=== PATIENT | male | born 1960 | race Caucasian/White ===

== ENCOUNTER → 2021-04-05 08:43 | Outpatient (CLI) | payer OTHER, SELFPAY ==
[2021-04-05 12:19] LABS: COVID19 -Nasal RAPID Negative (Negative)
== END ==
PROVIDERS: PCP Internal Medicine; Visit Provider Physician Assistant
DX: Z01.812 Encounter for preprocedural laboratory examination (principal); Z20.822 Contact with and (suspected) exposure to COVID-19
CPT/HCPCS: 87635

== ENCOUNTER 2021-04-06 07:46 | Day surgery (SDC) | payer OTHER, SELFPAY ==
--- NOTE | 2021-04-06 | PATH_ITS ---
[facility] Accession Number: [id number] . 01 Material submitted: . colon - COLON POLYPS . 01 Clinical history: . SDC . 02 Diagnosis: Colon, Polyps, Biopsies: Tubular adenomas. MRV 04/09/2021 1009 Local . 02 Electronically signed: . Radha Ayala MD, Pathologist NPI- [id number] . 01 Gross description: . COLON POLYPS: Received in formalin are 2 fragment(s) of campos, soft tissue measuring 0.4 x 0.4 x 0.3 cm to 0.2 x 0.2 x 0.2 cm submitted entirely in 1 cassette(s) /BONG 04/07/2021 0723 Local . 02 Pathologist provided ICD-10: D12.6 . 02 CPT . 146473 Performed at: 01 [facility] [address] [id number] MD Jad Manzo MD Phone: [phone] Performed at: 02 [facility] [address] [place], [place] [id number] MD Radha Ayala MD Phone: [phone]
[2021-04-06] MEDS: SODIUM CHLORIDE 0.9% 1,000 ML 125 ML IV (07:59)
[2021-04-06 08:06] VITALS: BP 126/78; PULSE 65; RESP 14; TEMP 36.2; O2SAT 99
[2021-04-06 08:12] VITALS: BMI 27.4
--- NOTE | 2021-04-06 09:05 | PM.HP.1 ---
History of Present Illness History of Present Illness Date Patient Seen: 04/06/21 Time Patient Seen: 09:05 Chief complaint: SDC Narrative: Indicated for CRC screening. No symptoms. Patient History Medical History Environmental allergies Surgical History History of colonoscopy Comment: Negative cscope approximately 10 yrs ago. Family & Social History Family history unavailable: Yes Social History: household members spouse Tobacco & Substance use: Smoking Status Never smoker alcohol intake current alcohol intake frequency 3 or more drinks per day Substance Use Type does not use Comment: No fam hx crc Meds Home Medications and Allergies Home Medications Medication Instructions Recorded Confirmed Type fluticasone propionate 50 2 spray INTRANASAL DAILY 04/06/21 04/06/21 History mcg/actuation nasal spray,suspension loratadine 10 mg tablet (Claritin) 10 mg PO DAILY PRN 04/06/21 04/06/21 History Allergies Allergy/AdvReac Type Severity Reaction Status Date / Time No Known Drug Allergies Allergy Verified 04/06/21 08:01 Review of Systems Review of Systems ROS: Yes All systems reviewed with the patient and are negative except as otherwise documented Exam Vital Signs (past 8 hours): - 04/06/21 08:06 Temperature 97.1 F L Pulse Rate 65 Respiratory Rate 14 Blood Pressure 126/78 Pulse Oximetry 99 Oxygen Delivery Method Room Air Const General: cooperative and comfortable Orientation: alert HENCT Head: normocephalic Ears: external ears normal Nose: external nose normal Face and sinus: normal facial exam Mouth: oral mucosae normal Eyes General: appearance normal, both eyes and all related structures Neck Neck: normal visual inspection Chest Chest: normal inspection of the chest Resp Effort & Inspection: normal respiratory effort Auscultation: clear to auscultation bilaterally Cardio Rate: regular rate Rhythm: regular rhythm Heart Sounds: no murmurs GI Inspection: normal to inspection Palpation: soft and No tender Auscultation: normal bowel sounds Skin General: no rashes or lesions noted and No jaundice Neuro General: patient alert and moves all extremities Cognition: normal cognition Speech: speech normal Extrem General: no pedal edema Psych Appearance: grossly normal Assessment & Plan Assessment & Plan narrative: Inidcated for colon cancer screening.
--- NOTE | 2021-04-06 09:07 | PM.PREOP ---
Pre-operative Note COVID-19 COVID-19 status: Negative Result date/Date tested (Pos, Neg/Pending): 04/05/21 Interval Note History & Physical reviewed/Exam performed by Physician: Yes Changes to H&P: No ASA Class (for procedural sedation): II
[2021-04-06] MEDS: fentaNYL 250 MCG/5 ML INJ IV (09:12)
[2021-04-06] MEDS: MIDAZOLAM 5 MG/5 ML VIAL IV (09:20)
--- NOTE | 2021-04-06 09:30 | PM.OP.ENDO ---
Operative Date/Time/Diagnoses Date of procedure: 04/06/21 Time of procedure: 09:30 Pre-op diagnosis: Colon cancer screening Post-op diagnosis: same Procedure & Clinicians Study performed: Colonoscopy with cold forceps polypectomies Same procedure as scheduled: Yes Indications: Colonoscopy be for colon cancer screening Surgeon: Hemant Alcantara Procedure Notes SCOAP/Timeout: Done Procedure in detail: After the risks and benefits were explained, written and verbal informed consent was obtained. The patient was brought into the procedure room and placed into the left lateral decubitus position. Conscious sedation medication was applied as per nursing documentation. Digital rectal examination was accomplished. The scope was introduced into the patient and advanced under direct visualization to the cecum as identified by the appendiceal orifice and ileocecal valve. The scope was slowly withdrawn to carefully examine the mucosa for any defects or lesions. Comprehensive imaging was accomplished throughout the rectum including the dentate line. The colon was decompressed, the scope was then removed from the patient who tolerated the procedure well. Fentanyl 100mcg versed 5mg bowel prep adequate Scope withdrawal time: 7 minutes Sedation minutes: 18 Complications: none Impression: There were a couple of diminutive polyps removed with cold forceps. These ranged in size from 4-5 mm. One of them was in the descending colon and 1 in the proximal transverse. No other significant pathology was appreciated throughout. Mild internal hemorrhoids noted on direct views through the anorectum. Endoscopic diagnosis 1. Colon polyps 2. Mild hemorrhoids Post-procedure Recommendations: Colonscopy in 5 years and Will call with biopsy results Plan for aftercare: 1. Await histopathology 2. Repeat colonoscopy 5 years. Disposition: PACU
[2021-04-06 09:32] VITALS: BP 111/65; PULSE 61; RESP 15; TEMP 36.1; O2SAT 98
[2021-04-06 09:37] VITALS: BP 103/62; PULSE 59; RESP 16; O2SAT 98
[2021-04-06 09:41] VITALS: BP 104/70; PULSE 60; RESP 16; O2SAT 99
[2021-04-06 09:53] VITALS: BP 116/73; PULSE 56; RESP 14; TEMP 36.2; O2SAT 99
--- NOTE | 2021-04-06 10:07 | SUR.PHASEII ---
1005 Verbal discharge order obtained from Dr. Alcantara. He will provide the order when completed with his current procedure. Pt A&O, stable, pleasant, tolerating PO well, denies pain.
== END 2021-05-07 10:07 | disposition home or self-care (01) ==
PROVIDERS: PCP Internal Medicine; Referring Provider Internal Medicine Gastroenterology; Visit Provider Internal Medicine Gastroenterology
PROC: 0DJD8ZZ Inspection of Lower Intestinal Tract, Via Natural or Artificial Opening Endoscopic (ICD-10-PCS; CPT 45378; principal; 2021-04-06 09:00)
DX: Z12.11 Encounter for screening for malignant neoplasm of colon (principal); K64.8 Other hemorrhoids; D12.6 Benign neoplasm of colon, unspecified
CPT/HCPCS: 45380; J2250; J3010

== ENCOUNTER 2022-02-10 02:51 | Emergency (ER) | payer BC, SELFPAY ==
[2022-02-10] VITALS (48 sets, daily range): BP systolic 96–142; BP diastolic 51–76; PULSE 81–99; RESP 17–36; TEMP 37.3; O2SAT 88–98; BMI 26.6
--- NOTE | 2022-02-10 03:05 | DI.RAD.S_ITS ---
PROCEDURE: XR CHEST 1V INDICATIONS: dyspnea TECHNIQUE: One view of the chest was acquired. COMPARISON: . FINDINGS: Surgical changes and devices: None. Lungs and pleura: Patchy opacity in left lung base. Small left pleural fluid collection. No pneumothorax. Mediastinum: Mediastinal contours appear normal. Heart size is normal. Bones and chest wall: No suspicious bony lesions. Overlying soft tissues appear unremarkable. IMPRESSION: Left basilar atelectasis versus pneumonia. Small left-sided pleural fluid collection. Dictated by: Kirsten Michel MD, PhD on 02/10/2022 at 8:11 Approved by: Kirsten Michel MD, PhD on 02/10/2022 at 8:13
[2022-02-10 03:18] LABS: Add Manual Diff / Slide Review NO; Basophils Absolute Auto 0 /uL (0-100); Basophils Percent Auto 0.1 % (0-2); Eosinophils Absolute Auto 0 /uL (0-450); Eosinophils Percent Auto 0.1 % (2-4); Hematocrit 33.1 % (41-53); Hemoglobin 11.2 g/dL (13.5-17.5); Lactate (Lactic Acid) 1.1 mmol/L (0.7-2.1); Lymphocytes Absolute Auto 800 /uL (1100-4500); Lymphocytes Percent Auto 5.7 % (25-40); Mean Corpuscular Hemoglobin 33.1 PG (26-34); Mean Corpuscular Volume 97.4 fL (80-100); Monocytes Absolute Auto 1300 /uL (0-900); Monocytes Percent Auto 9.5 % (3-14); Neutrophils Absolute Auto 11600 /uL (1500-7000); Neutrophils Percent Auto 84.6 % (50-75); Platelet Count 404 X10^3/uL (150-400); Red Cell Distribution Width 12.9 % (11.6-14.8); White Blood Cell Count 13.8 X10^3/uL (4.5-11.0)
[2022-02-10 03:19] LABS: Alanine Aminotransferase 135 IU/L (<50); Albumin 3.6 g/dL (3.5-5.0); Albumin Globulin Ratio 1.1 (1.0-2.8); Alkaline Phosphatase 160 U/L (38-126); Aspartate Aminotransferase 79 IU/L (17-59); BUN Creatinine Ratio 20.6 (6-22); Bilirubin Total 1.4 mg/dL (0.2-1.3); Blood Urea Nitrogen 14 mg/dL (9-20); Calcium 8.4 mg/dL (8.4-10.2); Carbon Dioxide 23 mmol/L (22-32); Chloride 103 mmol/L (98-107); Estimated Glomerular Filt Rate > 60 mL/min (>60); Globulin 3.4 g/dL (1.7-4.1); Glucose 174 mg/dL (80-110); HEMOLYSIS < 15 (0-50); Potassium 4.1 mmol/L (3.4-5.1); Sodium 134 mmol/L (137-145)
--- NOTE | 2022-02-10 03:20 | ED_ITS ---
HPI - General Adult <Rafaela Lance MD - Last Filed: 02/19/22 18:06> General Chief complaint: Chest Pain Stated complaint: thinks heart attack pain left side Time Seen by Provider: 02/10/22 02:51 Source: patient Mode of arrival: Ambulatory History of Present Illness HPI narrative: 61-year-old gentleman with no significant personal medical history presents with 2-3 weeks of increasing exertional dyspnea and orthopnea. He also complains of severe fatigue. Describes significant chest pain in the top of his chest radiating to the left shoulder worse when he is laying on his left side. Over the last couple of nights he has noticed night sweats which is very unusual for him. He describes no significant nausea vomiting or abdominal pain. Notes that yesterday he was able [place] chest pain. He says that it was much slower than his typical pacing he felt like he was not able to get a deep breath. Symptoms became severe tonight when he was awakened with significant dyspnea and needed to stand upright. It is unclear if this was a separate event or a description of paroxysmal nocturnal dyspnea. He does not have lower extremity edema he describes no headaches. He notes incidentally that he has a lump on the right side of his neck that he noticed over the last 2 days. It is non painful. He has had no change to weight. He describes no rashes, neck pain, headaches. Related Data Home Medications Medication Instructions Recorded Confirmed fluticasone propionate 50 2 spray intranasal DAILY 04/06/21 04/06/21 mcg/actuation nasal spray,suspension loratadine 10 mg tablet (Claritin) 10 mg PO DAILY PRN Allergies 04/06/21 04/06/21 Allergies Allergy/AdvReac Type Severity Reaction Status Date / Time No Known Drug Allergies Allergy Verified 04/06/21 08:01 Review of Systems <Rafaela Lance MD - Last Filed: 02/19/22 18:06> Review of Systems Narrative: Remainder of complete review of systems is otherwise unremarkable except for that included in the HPI. Patient History <Rafaela Lance MD - Last Filed: 02/19/22 18:06> Medical History Environmental allergies Surgical History History of colonoscopy Social History household members: spouse Smoking Status: Never smoker alcohol intake: current Smoking Status: Never smoker alcohol intake frequency: 0-2 drinks per day Alcohol type: wine Substance Use Type: does not use Exam <Rafaela Lance MD - Last Filed: 02/19/22 18:06> Initial Vital Signs Initial Vital Signs: Vital Signs Pulse Rate 95 H 02/10/22 02:59 Respiratory Rate 25 H 02/10/22 02:59 Pulse Oximetry 95 02/10/22 02:59 General: Appears pale, generally unwell with slight fluid overload to the face but Able to give a complete and coherent history speaking in full sentences. Well-nourished well-developed HEENT: Moist mucous membranes, normal sclera with reactive pupils, Neck: + JVD, supple. 2 x 3 cm firm minimally mobile lymph node in the right lower portion of the anterior cervical chain. He has no other palpable cervical or supraclavicular adenopathy Respiratory: Lungs with diminished pulmonary noise in the bases with significantly decreased noises the left base. Minor crackles no rhonchi. Cardiac: Regular rate and rhythm, loud 4/5 systolic ejection murmur heard best over the anterior wall, radiating toward the neck but not significantly appreciated toward the apex. Abdomen: Soft, nontender, good bowel tones, no flank pain. No appreciable hepatomegaly. No pulsatile abdominal masses. Skin: Warm and dry, no rashes Neurologic: Grossly neurologically intact with no obvious asymmetries or abnormalities Extremities: No trauma, well perfused. No axillary or inguinal adenopathy appr eciated. No lower extremity edema. Psych: Cooperative, appropriate insight and affect <Samia Dasilva, DO - Last Filed: 02/10/22 19:20> Initial Vital Signs Initial Vital Signs: Vital Signs Pulse Rate 95 H 02/10/22 02:59 Respiratory Rate 25 H 02/10/22 02:59 Pulse Oximetry 95 02/10/22 02:59 <Luis Murguia DO - Last Filed: 02/11/22 13:46> Initial Vital Signs Initial Vital Signs: Vital Signs Pulse Rate 95 H 02/10/22 02:59 Respiratory Rate 25 H 02/10/22 02:59 Pulse Oximetry 95 02/10/22 02:59 <Margot Mendez DO - Last Filed: 02/11/22 17:59> Initial Vital Signs Initial Vital Signs: Vital Signs Pulse Rate 95 H 02/10/22 02:59 Respiratory Rate 25 H 02/10/22 02:59 Pulse Oximetry 95 02/10/22 02:59 Course <Rafaela Lance MD - Last Filed: 02/19/22 18:06> Orders Ordered: Discontinued Medications Piperacillin Sod/Tazobactam (Sod 4.5 gm/ Sodium Chloride) 100 mls @ 200 mls/hr IV NOW ONE Stop: 02/10/22 03:42 Last Infusion: 02/10/22 04:25 Dose: 0 mls/hr Documented By: Admin: 02/10/22 03:53 Dose: 200 mls/hr Documented By: MEME Piperacillin Sod/Tazobactam (Sod 3.375 gm/ Sodium Chloride) 100 mls @ 25 mls/hr IV Q8H [facility] Last Infusion: 02/11/22 11:17 Dose: 0 mls/hr Documented By: Admin: 02/11/22 07:43 Dose: 25 mls/hr Documented By: DYLAN Morphine Sulfate (Morphine 2 Mg/Ml Inj) 2 mg IV Q2HR PRN PRN Reason: Pain, Moderate (4-6) Last Admin: 02/10/22 06:26 Dose: 2 mg Documented By: MEME Vital Signs Vital signs: Vital Signs - 8 hr 02/11/22 10:00 02/11/22 10:30 02/11/22 11:00 Pulse Rate 84 82 83 Respiratory Rate 20 24 24 Blood Pressure 109/63 Pulse Oximetry 93 93 93 02/11/22 11:30 02/11/22 12:00 02/11/22 12:30 Pulse Rate 84 83 80 Respiratory Rate 24 30 H 20 Blood Pressure 105/65 Pulse Oximetry 93 93 92 02/11/22 13:00 02/11/22 13:30 02/11/22 14:00 Pulse Rate 80 85 82 Respiratory Rate 26 H 24 25 H Blood Pressure 101/68 Pulse Oximetry 94 94 94 02/11/22 14:30 02/11/22 14:48 Pulse Rate 82 Respiratory Rate 24 Blood Pressure 101/68 Pulse Oximetry 94 <Samia Dasilva DO - Last Filed: 02/10/22 19:20> Orders Ordered: Discontinued Medications Piperacillin Sod/Tazobactam (Sod 4.5 gm/ Sodium Chloride) 100 mls @ 200 mls/hr IV NOW ONE Stop: 02/10/22 03:42 Last Infusion: 02/10/22 04:25 Dose: 0 mls/hr Documented By: Admin: 02/10/22 03:53 Dose: 200 mls/hr Documented By: MEME Piperacillin Sod/Tazobactam (Sod 3.375 gm/ Sodium Chloride) 100 mls @ 25 mls/hr IV Q8H [facility] Last Infusion: 02/11/22 11:17 Dose: 0 mls/hr Documented By: Admin: 02/11/22 07:43 Dose: 25 mls/hr Documented By: DYLAN Morphine Sulfate (Morphine 2 Mg/Ml Inj) 2 mg IV Q2HR PRN PRN Reason: Pain, Moderate (4-6) Last Admin: 02/10/22 06:26 Dose: 2 mg Documented By: MEME Vital Signs Vital signs: Vital Signs - 8 hr 02/11/22 10:00 02/11/22 10:30 02/11/22 11:00 Pulse Rate 84 82 83 Respiratory Rate 20 24 24 Blood Pressure 109/63 Pulse Oximetry 93 93 93 02/11/22 11:30 02/11/22 12:00 02/11/22 12:30 Pulse Rate 84 83 80 Respiratory Rate 24 30 H 20 Blood Pressure 105/65 Pulse Oximetry 93 93 92 02/11/22 13:00 02/11/22 13:30 02/11/22 14:00 Pulse Rate 80 85 82 Respiratory Rate 26 H 24 25 H Blood Pressure 101/68 Pulse Oximetry 94 94 94 02/11/22 14:30 02/11/22 14:48 Pulse Rate 82 Respiratory Rate 24 Blood Pressure 101/68 Pulse Oximetry 94 <Luis Murguia, DO - Last Filed: 02/11/22 13:46> Orders Ordered: Discontinued Medications Piperacillin Sod/Tazobactam (Sod 4.5 gm/ Sodium Chloride) 100 mls @ 200 mls/hr IV NOW ONE Stop: 02/10/22 03:42 Last Infusion: 02/10/22 04:25 Dose: 0 mls/hr Documented By: Admin: 02/10/22 03:53 Dose: 200 mls/hr Documented By: MEME Piperacillin Sod/Tazobactam (Sod 3.375 gm/ Sodium Chloride) 100 mls @ 25 mls/hr IV Q8H [facility] Last Infusion: 02/11/22 11:17 Dose: 0 mls/hr Documented By: Admin: 02/11/22 07:43 Dose: 25 mls/hr Documented By: DYLAN Morphine Sulfate (Morphine 2 Mg/Ml Inj) 2 mg IV Q2HR PRN PRN Reason: Pain, Moderate (4-6) Last Admin: 02/10/22 06:26 Dose: 2 mg Documented By: MEME Vital Signs Vital signs: Vital Signs - 8 hr 02/11/22 10:00 02/11/22 10:30 02/11/22 11:00 Pulse Rate 84 82 83 Respiratory Rate 20 24 24 Blood Pressure 109/63 Pulse Oximetry 93 93 93 02/11/22 11:30 02/11/22 12:00 02/11/22 12:30 Pulse Rate 84 83 80 Respiratory Rate 24 30 H 20 Blood Pressure 105/65 Pulse Oximetry 93 93 92 02/11/22 13:00 02/11/22 13:30 02/11/22 14:00 Pulse Rate 80 85 82 Respiratory Rate 26 H 24 25 H Blood Pressure 101/68 Pulse Oximetry 94 94 94 02/11/22 14:30 02/11/22 14:48 Pulse Rate 82 Respiratory Rate 24 Blood Pressure 101/68 Pulse Oximetry 94 <Margot Mendez, DO - Last Filed: 02/11/22 17:59> Orders Ordered: Discontinued Medications Piperacillin Sod/Tazobactam (Sod 4.5 gm/ Sodium Chloride) 100 mls @ 200 mls/hr IV NOW ONE Stop: 02/10/22 03:42 Last Infusion: 02/10/22 04:25 Dose: 0 mls/hr Documented By: Admin: 02/10/22 03:53 Dose: 200 mls/hr Documented By: MEME Piperacillin Sod/Tazobactam (Sod 3.375 gm/ Sodium Chloride) 100 mls @ 25 mls/hr IV Q8H [facility] Last Infusion: 02/11/22 11:17 Dose: 0 mls/hr Documented By: Admin: 02/11/22 07:43 Dose: 25 mls/hr Documented By: DYLAN Morphine Sulfate (Morphine 2 Mg/Ml Inj) 2 mg IV Q2HR PRN PRN Reason: Pain, Moderate (4-6) Last Admin: 02/10/22 06:26 Dose: 2 mg Documented By: MEME Vital Signs Vital signs: Vital Signs - 8 hr 02/11/22 10:00 02/11/22 10:30 02/11/22 11:00 Pulse Rate 84 82 83 Respiratory Rate 20 24 24 Blood Pressure 109/63 Pulse Oximetry 93 93 93 02/11/22 11:30 02/11/22 12:00 02/11/22 12:30 Pulse Rate 84 83 80 Respiratory Rate 24 30 H 20 Blood Pressure 105/65 Pulse Oximetry 93 93 92 02/11/22 13:00 02/11/22 13:30 02/11/22 14:00 Pulse Rate 80 85 82 Respiratory Rate 26 H 24 25 H Blood Pressure 101/68 Pulse Oximetry 94 94 94 02/11/22 14:30 02/11/22 14:48 Pulse Rate 82 Respiratory Rate 24 Blood Pressure 101/68 Pulse Oximetry 94 Medical Decision Making <Rafaela Lance MD - Last Filed: 02/19/22 18:06> Lab Data Result diagrams: 02/11/22 05:55 02/11/22 05:55 Labs: Lab Results 02/10/22 02/10/22 02/10/22 Range/Units 02:55 02:55 02:55 WBC 13.8 H (4.5-11.0) X10^3/uL RBC 3.40 L (4.5-5.9) X10^6/uL Hgb 11.2 L (13.5-17.5) g/dL Hct 33.1 L (41-53) % MCV 97.4 (80-100) fL MCH 33.1 (26-34) PG MCHC 34.0 (30-36) % RDW 12.9 (11.6-14.8) % Plt Count 404 H (150-400) X10^3/uL Neut % (Auto) 84.6 H (50-75) % Lymph % (Auto) 5.7 L (25-40) % [place] % (Auto) 9.5 (3-14) % Eos % (Auto) 0.1 L (2-4) % Baso % (Auto) 0.1 (0-2) % Neut # (Auto) 19506 H (2764-6207) /uL Lymph # (Auto) 800 L (5351-7832) /uL [place] # (Auto) 1300 H (0-900) /uL Eos # (Auto) 0 (0-450) /uL Baso # (Auto) 0 (0-100) /uL D-Dimer 2425 H (<230) ng/mL Sodium 134 L (137-145) mmol/L Potassium 4.1 (3.4-5.1) mmol/L Chloride 103 (98-107) mmol/L Carbon Dioxide 23 (22-32) mmol/L BUN 14 (9-20) mg/dL Creatinine 0.68 (0.66-1.25) mg/dL Estimated GFR > 60 (>60) mL/min BUN/Creatinine Ratio 20.6 (6-22) Glucose 174 H (80-110) mg/dL Lactate (0.7-2.1) mmol/L Calcium 8.4 (8.4-10.2) mg/dL Magnesium 2.0 (1.6-2.3) mg/dL Total Bilirubin 1.4 H (0.2-1.3) mg/dL AST 79 H (17-59) IU/L ALT 135 H (<50) IU/L Alkaline Phosphatase 160 H (38-126) U/L Total Creatine Kinase (55-170) U/L CK-MB (CK-2) CK-MB (CK-2) Rel Index Troponin I (0.01-0.034) ng/mL NT-Pro-B Natriuret Pep 1370 H (<125) pg/mL Total Protein 7.0 (6.3-8.2) g/dL Albumin 3.6 (3.5-5.0) g/dL Globulin 3.4 (1.7-4.1) g/dL Albumin/Globulin Ratio 1.1 (1.0-2.8) Procalcitonin 0.26 (<0.5) ng/mL Urine Color Urine Appearance Urine pH (4.5-8.0) Ur Specific [place] (1.000-1.035) Urine Protein (Negative) Urine Glucose (UA) (Negative) g/dL Urine Ketones (NEGATIVE) Urine Occult Blood (Negative) Urine Nitrate (Negative) Urine Bilirubin (NEGATIVE) Urine Urobilinogen (0.2) E.U./dL Ur Leukocyte Esterase (NEGATIVE) Urine RBC (0-5/HPF) Urine WBC (0-5/HPF) Ur Squamous Epith Cells (0-5/HPF) Urine Bacteria (None) Ur Culture Indicated? SARS-CoV-2 (PCR) (Negative) 02/10/22 02/10/22 02/10/22 Range/Units 02:55 02:55 02:55 WBC (4.5-11.0) X10^3/uL RBC (4.5-5.9) X10^6/uL Hgb (13.5-17.5) g/dL Hct (41-53) % MCV (80-100) fL MCH (26-34) PG MCHC (30-36) % RDW (11.6-14.8) % Plt Count (150-400) X10^3/uL Neut % (Auto) (50-75) % Lymph % (Auto) (25-40) % [place] % (Auto) (3-14) % Eos % (Auto) (2-4) % Baso % (Auto) (0-2) % Neut # (Auto) (4379-9361) /uL Lymph # (Auto) (0676-2680) /uL [place] # (Auto) (0-900) /uL Eos # (Auto) (0-450) /uL Baso # (Auto) (0-100) /uL D-Dimer (<230) ng/mL Sodium (137-145) mmol/L Potassium (3.4-5.1) mmol/L Chloride (98-107) mmol/L Carbon Dioxide (22-32) mmol/L BUN (9-20) mg/dL Creatinine (0.66-1.25) mg/dL Estimated GFR (>60) mL/min BUN/Creatinine Ratio (6-22) Glucose (80-110) mg/dL Lactate 1.1 (0.7-2.1) mmol/L Calcium (8.4-10.2) mg/dL Magnesium (1.6-2.3) mg/dL Total Bilirubin (0.2-1.3) mg/dL AST (17-59) IU/L ALT (<50) IU/L Alkaline Phosphatase (38-126) U/L Total Creatine Kinase 50 L (55-170) U/L CK-MB (CK-2) TNP CK-MB (CK-2) Rel Index TNP Troponin I 0.013 (0.01-0.034) ng/mL NT-Pro-B Natriuret Pep (<125) pg/mL Total Protein (6.3-8.2) g/dL Albumin (3.5-5.0) g/dL Globulin (1.7-4.1) g/dL Albumin/Globulin Ratio (1.0-2.8) Procalcitonin (<0.5) ng/mL Urine Color Urine Appearance Urine pH (4.5-8.0) Ur Specific [place] (1.000-1.035) Urine Protein (Negative) Urine Glucose (UA) (Negative) g/dL Urine Ketones (NEGATIVE) Urine Occult Blood (Negative) Urine Nitrate (Negative) Urine Bilirubin (NEGATIVE) Urine Urobilinogen (0.2) E.U./dL Ur Leukocyte Esterase (NEGATIVE) Urine RBC (0-5/HPF) Urine WBC (0-5/HPF) Ur Squamous Epith Cells (0-5/HPF) Urine Bacteria (None) Ur Culture Indicated? SARS-CoV-2 (PCR) Negative (Negative) 02/10/22 02/11/22 02/11/22 Range/Units 17:18 05:55 05:55 WBC 11.5 H (4.5-11.0) X10^3/uL RBC 3.39 L (4.5-5.9) X10^6/uL Hgb 11.2 L (13.5-17.5) g/dL Hct 33.0 L (41-53) % MCV 97.5 (80-100) fL MCH 33.0 (26-34) PG MCHC 33.9 (30-36) % RDW 12.7 (11.6-14.8) % Plt Count 423 H (150-400) X10^3/uL Neut % (Auto) 83.0 H (50-75) % Lymph % (Auto) 6.5 L (25-40) % [place] % (Auto) 9.0 (3-14) % Eos % (Auto) 0.7 L (2-4) % Baso % (Auto) 0.8 (0-2) % Neut # (Auto) 9600 H (5843-8458) /uL Lymph # (Auto) 800 L (6587-6084) /uL [place] # (Auto) 1000 H (0-900) /uL Eos # (Auto) 100 (0-450) /uL Baso # (Auto) 100 (0-100) /uL D-Dimer (<230) ng/mL Sodium 137 (137-145) mmol/L Potassium 4.7 (3.4-5.1) mmol/L Chloride 102 (98-107) mmol/L Carbon Dioxide 32 (22-32) mmol/L BUN 15 (9-20) mg/dL Creatinine 0.73 (0.66-1.25) mg/dL Estimated GFR > 60 (>60) mL/min BUN/Creatinine Ratio 20.5 (6-22) Glucose 130 H (80-110) mg/dL Lactate (0.7-2.1) mmol/L Calcium 8.3 L (8.4-10.2) mg/dL Magnesium (1.6-2.3) mg/dL Total Bilirubin 0.9 (0.2-1.3) mg/dL AST 50 (17-59) IU/L ALT 98 H (<50) IU/L Alkaline Phosphatase 129 H (38-126) U/L Total Creatine Kinase 26 L (55-170) U/L CK-MB (CK-2) TNP CK-MB (CK-2) Rel Index TNP Troponin I < 0.012 (0.01-0.034) ng/mL NT-Pro-B Natriuret Pep (<125) pg/mL Total Protein 6.6 (6.3-8.2) g/dL Albumin 3.1 L (3.5-5.0) g/dL Globulin 3.5 (1.7-4.1) g/dL Albumin/Globulin Ratio 0.9 L (1.0-2.8) Procalcitonin (<0.5) ng/mL Urine Color Yellow Urine Appearance Clear Urine pH 5.5 (4.5-8.0) Ur Specific [place] 1.015 (1.000-1.035) Urine Protein Trace H (Negative) Urine Glucose (UA) Trace H (Negative) g/dL Urine Ketones Negative (NEGATIVE) Urine Occult Blood Negative (Negative) Urine Nitrate Negative (Negative) Urine Bilirubin Negative (NEGATIVE) Urine Urobilinogen 1.0 (0.2) E.U./dL Ur Leukocyte Esterase Negative (NEGATIVE) Urine RBC None seen (0-5/HPF) Urine WBC 1-5/hpf (0-5/HPF) Ur Squamous Epith Cells 1-5 /hpf (0-5/HPF) Urine Bacteria None seen (None) Ur Culture Indicated? Cult not indicated SARS-CoV-2 (PCR) (Negative) Imaging Data Chest x-ray: Radiologist's Impression: Left lower lobe infiltrate with associated small pleural effusion. Heart size is normal. No pneumothorax or congestive changes. MD May ECG Data Interpretation: Sinus rhythm at a rate of 90 Right bundle-branch block with nonspecific ST T wave changes No prior EKGs are available for comparison MDM Narrative Medical decision making narrative: 61-year-old gentleman in excellent health with no preceding diagnoses 3 weeks of dyspnea and a sense that he can not quite catch a full breath. No significant anemia, troponin is unremarkable chest x-ray looks like an enlarged heart and pleural effusion possible infiltrate mildly elevated white blood cell count. He is given Zosyn and additional studies ordered. D-dimer was dramatically elevated and a CT scan of the abdomen was done. With the incidentally noted large rather fixed lymph node in the right neck CT scan was extended through the abdomen and pelvis as well. He has pericardial effusion with thickened pericardium itself. Bilateral pleural effusions. There is the mention of an enlarged single mediastinal node. No obvious pneumonia and no pulmonary emboli. At this point he will need hospital admission to a facility that has pulmonary, Cardiology and likely cardiothoracic surgery available. Uncertain etiology for the pericardial effusion and thickened pericardium. Certainly concern for cancer etiology given the lymph nodes noted in the mediastinum and the neck. Due to critical bed shortages throughout [facility] finding appropriate placement for him is going to be challenging. There are no beds currently available in [place]. Have left a message with the [facility] and will talk to Cardiology but they currently do not have available bed capacity. [facility] and [facility] are all completely full. Discussed findings and concerns with the patient. Will see if we can arrange for an echocardiogram to be done in the emergency department while we are waiting for additional bed placement. He is aware of diagnosis and search for bed availability. He is placed on 2 L of oxygen and is much more comfortable, less tachypnea oxygen saturations remained stable in the upper 90s. Complains of myalgias and ?hurting everywhere?. We use morphine for pain control and see if that also helps with the dyspnea. In discussion with Cardiology, we do want to keep him euvolemic to well hydrated. Diuresis would be inappropriate. If this is cancer related than steroids or nonsteroidals to help with pericardial inflammation may not be indicated. We need a more definitive diagnosis before proceeding with any additional treatment. 02/10 6am case is reviewed with Dr. Etienne, cardiology [facility]. Agrees to accept patient however there are no current beds available. He is placed on wait list at this time Care is transferred to Dr Dasilva at change of shift. <Samia Daislva, DO - Last Filed: 02/10/22 19:20> Lab Data Labs: Lab Results 02/10/22 02/10/22 02/10/22 Range/Units 02:55 02:55 02:55 WBC 13.8 H (4.5-11.0) X10^3/uL RBC 3.40 L (4.5-5.9) X10^6/uL Hgb 11.2 L (13.5-17.5) g/dL Hct 33.1 L (41-53) % MCV 97.4 (80-100) fL MCH 33.1 (26-34) PG MCHC 34.0 (30-36) % RDW 12.9 (11.6-14.8) % Plt Count 404 H (150-400) X10^3/uL Neut % (Auto) 84.6 H (50-75) % Lymph % (Auto) 5.7 L (25-40) % [place] % (Auto) 9.5 (3-14) % Eos % (Auto) 0.1 L (2-4) % Baso % (Auto) 0.1 (0-2) % Neut # (Auto) 41083 H (6512-5838) /uL Lymph # (Auto) 800 L (0445-3727) /uL [place] # (Auto) 1300 H (0-900) /uL Eos # (Auto) 0 (0-450) /uL Baso # (Auto) 0 (0-100) /uL D-Dimer 2425 H (<230) ng/mL Sodium 134 L (137-145) mmol/L Potassium 4.1 (3.4-5.1) mmol/L Chloride 103 (98-107) mmol/L Carbon Dioxide 23 (22-32) mmol/L BUN 14 (9-20) mg/dL Creatinine 0.68 (0.66-1.25) mg/dL Estimated GFR > 60 (>60) mL/min BUN/Creatinine Ratio 20.6 (6-22) Glucose 174 H (80-110) mg/dL Lactate (0.7-2.1) mmol/L Calcium 8.4 (8.4-10.2) mg/dL Magnesium 2.0 (1.6-2.3) mg/dL Total Bilirubin 1.4 H (0.2-1.3) mg/dL AST 79 H (17-59) IU/L ALT 135 H (<50) IU/L Alkaline Phosphatase 160 H (38-126) U/L Total Creatine Kinase (55-170) U/L CK-MB (CK-2) CK-MB (CK-2) Rel Index Troponin I (0.01-0.034) ng/mL NT-Pro-B Natriuret Pep 1370 H (<125) pg/mL Total Protein 7.0 (6.3-8.2) g/dL Albumin 3.6 (3.5-5.0) g/dL Globulin 3.4 (1.7-4.1) g/dL Albumin/Globulin Ratio 1.1 (1.0-2.8) Procalcitonin 0.26 (<0.5) ng/mL Urine Color Urine Appearance Urine pH (4.5-8.0) Ur Specific [place] (1.000-1.035) Urine Protein (Negative) Urine Glucose (UA) (Negative) g/dL Urine Ketones (NEGATIVE) Urine Occult Blood (Negative) Urine Nitrate (Negative) Urine Bilirubin (NEGATIVE) Urine Urobilinogen (0.2) E.U./dL Ur Leukocyte Esterase (NEGATIVE) Urine RBC (0-5/HPF) Urine WBC (0-5/HPF) Ur Squamous Epith Cells (0-5/HPF) Urine Bacteria (None) Ur Culture Indicated? SARS-CoV-2 (PCR) (Negative) 02/10/22 02/10/22 02/10/22 Range/Units 02:55 02:55 02:55 WBC (4.5-11.0) X10^3/uL RBC (4.5-5.9) X10^6/uL Hgb (13.5-17.5) g/dL Hct (41-53) % MCV (80-100) fL MCH (26-34) PG MCHC (30-36) % RDW (11.6-14.8) % Plt Count (150-400) X10^3/uL Neut % (Auto) (50-75) % Lymph % (Auto) (25-40) % [place] % (Auto) (3-14) % Eos % (Auto) (2-4) % Baso % (Auto) (0-2) % Neut # (Auto) (1967-0333) /uL Lymph # (Auto) (4341-9867) /uL [place] # (Auto) (0-900) /uL Eos # (Auto) (0-450) /uL Baso # (Auto) (0-100) /uL D-Dimer (<230) ng/mL Sodium (137-145) mmol/L Potassium (3.4-5.1) mmol/L Chloride (98-107) mmol/L Carbon Dioxide (22-32) mmol/L BUN (9-20) mg/dL Creatinine (0.66-1.25) mg/dL Estimated GFR (>60) mL/min BUN/Creatinine Ratio (6-22) Glucose (80-110) mg/dL Lactate 1.1 (0.7-2.1) mmol/L Calcium (8.4-10.2) mg/dL Magnesium (1.6-2.3) mg/dL Total Bilirubin (0.2-1.3) mg/dL AST (17-59) IU/L ALT (<50) IU/L Alkaline Phosphatase (38-126) U/L Total Creatine Kinase 50 L (55-170) U/L CK-MB (CK-2) TNP CK-MB (CK-2) Rel Index TNP Troponin I 0.013 (0.01-0.034) ng/mL NT-Pro-B Natriuret Pep (<125) pg/mL Total Protein (6.3-8.2) g/dL Albumin (3.5-5.0) g/dL Globulin (1.7-4.1) g/dL Albumin/Globulin Ratio (1.0-2.8) Procalcitonin (<0.5) ng/mL Urine Color Urine Appearance Urine pH (4.5-8.0) Ur Specific [place] (1.000-1.035) Urine Protein (Negative) Urine Glucose (UA) (Negative) g/dL Urine Ketones (NEGATIVE) Urine Occult Blood (Negative) Urine Nitrate (Negative) Urine Bilirubin (NEGATIVE) Urine Urobilinogen (0.2) E.U./dL Ur Leukocyte Esterase (NEGATIVE) Urine RBC (0-5/HPF) Urine WBC (0-5/HPF) Ur Squamous Epith Cells (0-5/HPF) Urine Bacteria (None) Ur Culture Indicated? SARS-CoV-2 (PCR) Negative (Negative) 02/10/22 02/11/22 02/11/22 Range/Units 17:18 05:55 05:55 WBC 11.5 H (4.5-11.0) X10^3/uL RBC 3.39 L (4.5-5.9) X10^6/uL Hgb 11.2 L (13.5-17.5) g/dL Hct 33.0 L (41-53) % MCV 97.5 (80-100) fL MCH 33.0 (26-34) PG MCHC 33.9 (30-36) % RDW 12.7 (11.6-14.8) % Plt Count 423 H (150-400) X10^3/uL Neut % (Auto) 83.0 H (50-75) % Lymph % (Auto) 6.5 L (25-40) % [place] % (Auto) 9.0 (3-14) % Eos % (Auto) 0.7 L (2-4) % Baso % (Auto) 0.8 (0-2) % Neut # (Auto) 9600 H (1184-6056) /uL Lymph # (Auto) 800 L (4610-6763) /uL [place] # (Auto) 1000 H (0-900) /uL Eos # (Auto) 100 (0-450) /uL Baso # (Auto) 100 (0-100) /uL D-Dimer (<230) ng/mL Sodium 137 (137-145) mmol/L Potassium 4.7 (3.4-5.1) mmol/L Chloride 102 (98-107) mmol/L Carbon Dioxide 32 (22-32) mmol/L BUN 15 (9-20) mg/dL Creatinine 0.73 (0.66-1.25) mg/dL Estimated GFR > 60 (>60) mL/min BUN/Creatinine Ratio 20.5 (6-22) Glucose 130 H (80-110) mg/dL Lactate (0.7-2.1) mmol/L Calcium 8.3 L (8.4-10.2) mg/dL Magnesium (1.6-2.3) mg/dL Total Bilirubin 0.9 (0.2-1.3) mg/dL AST 50 (17-59) IU/L ALT 98 H (<50) IU/L Alkaline Phosphatase 129 H (38-126) U/L Total Creatine Kinase 26 L (55-170) U/L CK-MB (CK-2) TNP CK-MB (CK-2) Rel Index TNP Troponin I < 0.012 (0.01-0.034) ng/mL NT-Pro-B Natriuret Pep (<125) pg/mL Total Protein 6.6 (6.3-8.2) g/dL Albumin 3.1 L (3.5-5.0) g/dL Globulin 3.5 (1.7-4.1) g/dL Albumin/Globulin Ratio 0.9 L (1.0-2.8) Procalcitonin (<0.5) ng/mL Urine Color Yellow Urine Appearance Clear Urine pH 5.5 (4.5-8.0) Ur Specific [place] 1.015 (1.000-1.035) Urine Protein Trace H (Negative) Urine Glucose (UA) Trace H (Negative) g/dL Urine Ketones Negative (NEGATIVE) Urine Occult Blood Negative (Negative) Urine Nitrate Negative (Negative) Urine Bilirubin Negative (NEGATIVE) Urine Urobilinogen 1.0 (0.2) E.U./dL Ur Leukocyte Esterase Negative (NEGATIVE) Urine RBC None seen (0-5/HPF) Urine WBC 1-5/hpf (0-5/HPF) Ur Squamous Epith Cells 1-5 /hpf (0-5/HPF) Urine Bacteria None seen (None) Ur Culture Indicated? Cult not indicated SARS-CoV-2 (PCR) (Negative) Imaging Data CT scan - chest: Radiologist's Impression: nightread-moderate size pericardial effusion with thickening enhancement the pericardium possibly related to pericarditis. Bibasilar consolidation, atelectasis, versus pulmonary infiltrate. Ectasias the ascending thoracic aorta which measures 3.8 cm at maximum anterior-posterior dimension. Moderate-sized bilateral pleural effusions. Patient has enlarged lymph nodes mediastinal m easuring up to 1.[address] scan - abdomen/pelvis: Radiologist's Impression: Small bilateral pleural effusions and moderate pericardial effusion, thickening enhancement of the pericardium, possibly related to pericarditis. Cholelithi asis. No evidence of colitis, diverticulitis, bowel obstruction obstructive uropathy or acute appendicitis. Bladder diverticuli. Pericardium enhances and appears thickened. Small umbilical hernia containing fat. No free fluid. There are no suspicious lytic or sclerotic osseous lesions identified. Multilevel spondylitic changes the thoracolumbar spine, anteriorly thesis of L5 on S1 measuring 5 mm. Bilateral L5 pars defect. MDM Narrative Medical decision making narrative: 61-year-old gentleman in excellent health with no preceding diagnoses 3 weeks of dyspnea and a sense that he can not quite catch a full breath. No significant anemia, troponin is unremarkable chest x-ray looks like an enlarged heart and pleural effusion possible infiltrate mildly elevated white blood cell count. He is given Zosyn and additional studies ordered. D-dimer was dramatically elevated and a CT scan of the abdomen was done. With the incidentally noted large rather fixed lymph node in the right neck CT scan was extended through the abdomen and pelvis as well. He has pericardial effusion with thickened pericardium itself. Bilateral pleural effusions. There is the mention of an enlarged single mediastinal node. No obvious pneumonia and no pulmonary emboli. At this point he will need hospital admission to a facility that has pulmonary, Cardiology and likely cardiothoracic surgery available. Uncertain etiology for the pericardial effusion and thickened pericardium. Certainly concern for cancer etiology given the lymph nodes noted in the mediastinum and the neck. Due to critical bed shortages throughout [facility] finding appropriate placement for him is going to be challenging. [place] Have left a message with the [facility] and will talk to Cardiology but they currently do not have available bed capacity. [facility] and [facility] are all completely full. Discussed findings and concerns with the patient. Will see if we can arrange for an echocardiogram to be done in the emergency department while we are waiting for additional bed placement. He is aware of diagnosis and search for bed availability. He is placed on 2 L of oxygen and is much more comfortable, less tachypnea oxygen saturations remained stable in the upper 90s. Complains of myalgias and ?hurting everywhere?. We use morphine for pain control and see if that also helps with the dyspnea. In discussion with Cardiology, we do want to keep him euvolemic to well hydrated. Diuresis would be inappropriate. If this is cancer related than steroids or nonsteroidals to help with pericardial inflammation may not be indicated. We need a more definitive diagnosis before proceeding with any additional treatment. 02/10 6am case is reviewed with Dr. Etienne, cardiology [facility]. Agrees to accept patient however there are no current beds available. He is placed on wait list at this time Care is transferred to Dr Dasilva at change of shift. Patient signed out to myself by Dr. Lance. Was seen independently evaluated by myself. Patient states he has occasional pain in his left shoulder and chest particularly when he coughs. He states that his breathing is doing okay right now. He defers anything for pain or cough. He is aware of the current plan, denies any other issues. Reviewed his past medical history family history is significant cardiac family history and parents and younger sibling. We are currently searching for beds there are no regional beds available patient is on the [facility] hotline and they asked us to re-contacted patient begins to decompensate. Recommendations from Dr. Etienne with Cardiology [facility] were reviewed. And are noted above as well. ECHO was obtained, it does show paradoxical septum due to right ventricular pressure overload. IVC dilated >2.1cm and collapses Less than 50% with sniff, suggesting high right atrial pressure. Small to moderate pericardial effusion without indications of cardiac tamponade, moderate left sided pleural effusion. Patient has been stable through the day. Signed out to Dr. Mendez while seeking transfer for further workup and treatment. <Luis Murguia DO - Last Filed: 02/11/22 13:46> Lab Data Labs: Lab Results 02/10/22 02/10/22 02/10/22 Range/Units 02:55 02:55 02:55 WBC 13.8 H (4.5-11.0) X10^3/uL RBC 3.40 L (4.5-5.9) X10^6/uL Hgb 11.2 L (13.5-17.5) g/dL Hct 33.1 L (41-53) % MCV 97.4 (80-100) fL MCH 33.1 (26-34) PG MCHC 34.0 (30-36) % RDW 12.9 (11.6-14.8) % Plt Count 404 H (150-400) X10^3/uL Neut % (Auto) 84.6 H (50-75) % Lymph % (Auto) 5.7 L (25-40) % [place] % (Auto) 9.5 (3-14) % Eos % (Auto) 0.1 L (2-4) % Baso % (Auto) 0.1 (0-2) % Neut # (Auto) 07466 H (2000-7527) /uL Lymph # (Auto) 800 L (3040-9121) /uL [place] # (Auto) 1300 H (0-900) /uL Eos # (Auto) 0 (0-450) /uL Baso # (Auto) 0 (0-100) /uL D-Dimer 2425 H (<230) ng/mL Sodium 134 L (137-145) mmol/L Potassium 4.1 (3.4-5.1) mmol/L Chloride 103 (98-107) mmol/L Carbon Dioxide 23 (22-32) mmol/L BUN 14 (9-20) mg/dL Creatinine 0.68 (0.66-1.25) mg/dL Estimated GFR > 60 (>60) mL/min BUN/Creatinine Ratio 20.6 (6-22) Glucose 174 H (80-110) mg/dL Lactate (0.7-2.1) mmol/L Calcium 8.4 (8.4-10.2) mg/dL Magnesium 2.0 (1.6-2.3) mg/dL Total Bilirubin 1.4 H (0.2-1.3) mg/dL AST 79 H (17-59) IU/L ALT 135 H (<50) IU/L Alkaline Phosphatase 160 H (38-126) U/L Total Creatine Kinase (55-170) U/L CK-MB (CK-2) CK-MB (CK-2) Rel Index Troponin I (0.01-0.034) ng/mL NT-Pro-B Natriuret Pep 1370 H (<125) pg/mL Total Protein 7.0 (6.3-8.2) g/dL Albumin 3.6 (3.5-5.0) g/dL Globulin 3.4 (1.7-4.1) g/dL Albumin/Globulin Ratio 1.1 (1.0-2.8) Procalcitonin 0.26 (<0.5) ng/mL Urine Color Urine Appearance Urine pH (4.5-8.0) Ur Specific [place] (1.000-1.035) Urine Protein (Negative) Urine Glucose (UA) (Negative) g/dL Urine Ketones (NEGATIVE) Urine Occult Blood (Negative) Urine Nitrate (Negative) Urine Bilirubin (NEGATIVE) Urine Urobilinogen (0.2) E.U./dL Ur Leukocyte Esterase (NEGATIVE) Urine RBC (0-5/HPF) Urine WBC (0-5/HPF) Ur Squamous Epith Cells (0-5/HPF) Urine Bacteria (None) Ur Culture Indicated? SARS-CoV-2 (PCR) (Negative) 02/10/22 02/10/22 02/10/22 Range/Units 02:55 02:55 02:55 WBC (4.5-11.0) X10^3/uL RBC (4.5-5.9) X10^6/uL Hgb (13.5-17.5) g/dL Hct (41-53) % MCV (80-100) fL MCH (26-34) PG MCHC (30-36) % RDW (11.6-14.8) % Plt Count (150-400) X10^3/uL Neut % (Auto) (50-75) % Lymph % (Auto) (25-40) % [place] % (Auto) (3-14) % Eos % (Auto) (2-4) % Baso % (Auto) (0-2) % Neut # (Auto) (5326-1302) /uL Lymph # (Auto) (1915-1059) /uL [place] # (Auto) (0-900) /uL Eos # (Auto) (0-450) /uL Baso # (Auto) (0-100) /uL D-Dimer (<230) ng/mL Sodium (137-145) mmol/L Potassium (3.4-5.1) mmol/L Chloride (98-107) mmol/L Carbon Dioxide (22-32) mmol/L BUN (9-20) mg/dL Creatinine (0.66-1.25) mg/dL Estimated GFR (>60) mL/min BUN/Creatinine Ratio (6-22) Glucose (80-110) mg/dL Lactate 1.1 (0.7-2.1) mmol/L Calcium (8.4-10.2) mg/dL Magnesium (1.6-2.3) mg/dL Total Bilirubin (0.2-1.3) mg/dL AST (17-59) IU/L ALT (<50) IU/L Alkaline Phosphatase (38-126) U/L Total Creatine Kinase 50 L (55-170) U/L CK-MB (CK-2) TNP CK-MB (CK-2) Rel Index TNP Troponin I 0.013 (0.01-0.034) ng/mL NT-Pro-B Natriuret Pep (<125) pg/mL Total Protein (6.3-8.2) g/dL Albumin (3.5-5.0) g/dL Globulin (1.7-4.1) g/dL Albumin/Globulin Ratio (1.0-2.8) Procalcitonin (<0.5) ng/mL Urine Color Urine Appearance Urine pH (4.5-8.0) Ur Specific [place] (1.000-1.035) Urine Protein (Negative) Urine Glucose (UA) (Negative) g/dL Urine Ketones (NEGATIVE) Urine Occult Blood (Negative) Urine Nitrate (Negative) Urine Bilirubin (NEGATIVE) Urine Urobilinogen (0.2) E.U./dL Ur Leukocyte Esterase (NEGATIVE) Urine RBC (0-5/HPF) Urine WBC (0-5/HPF) Ur Squamous Epith Cells (0-5/HPF) Urine Bacteria (None) Ur Culture Indicated? SARS-CoV-2 (PCR) Negative (Negative) 02/10/22 02/11/22 02/11/22 Range/Units 17:18 05:55 05:55 WBC 11.5 H (4.5-11.0) X10^3/uL RBC 3.39 L (4.5-5.9) X10^6/uL Hgb 11.2 L (13.5-17.5) g/dL Hct 33.0 L (41-53) % MCV 97.5 (80-100) fL MCH 33.0 (26-34) PG MCHC 33.9 (30-36) % RDW 12.7 (11.6-14.8) % Plt Count 423 H (150-400) X10^3/uL Neut % (Auto) 83.0 H (50-75) % Lymph % (Auto) 6.5 L (25-40) % [place] % (Auto) 9.0 (3-14) % Eos % (Auto) 0.7 L (2-4) % Baso % (Auto) 0.8 (0-2) % Neut # (Auto) 9600 H (6848-6839) /uL Lymph # (Auto) 800 L (9760-7083) /uL [place] # (Auto) 1000 H (0-900) /uL Eos # (Auto) 100 (0-450) /uL Baso # (Auto) 100 (0-100) /uL D-Dimer (<230) ng/mL Sodium 137 (137-145) mmol/L Potassium 4.7 (3.4-5.1) mmol/L Chloride 102 (98-107) mmol/L Carbon Dioxide 32 (22-32) mmol/L BUN 15 (9-20) mg/dL Creatinine 0.73 (0.66-1.25) mg/dL Estimated GFR > 60 (>60) mL/min BUN/Creatinine Ratio 20.5 (6-22) Glucose 130 H (80-110) mg/dL Lactate (0.7-2.1) mmol/L Calcium 8.3 L (8.4-10.2) mg/dL Magnesium (1.6-2.3) mg/dL Total Bilirubin 0.9 (0.2-1.3) mg/dL AST 50 (17-59) IU/L ALT 98 H (<50) IU/L Alkaline Phosphatase 129 H (38-126) U/L Total Creatine Kinase 26 L (55-170) U/L CK-MB (CK-2) TNP CK-MB (CK-2) Rel Index TNP Troponin I < 0.012 (0.01-0.034) ng/mL NT-Pro-B Natriuret Pep (<125) pg/mL Total Protein 6.6 (6.3-8.2) g/dL Albumin 3.1 L (3.5-5.0) g/dL Globulin 3.5 (1.7-4.1) g/dL Albumin/Globulin Ratio 0.9 L (1.0-2.8) Procalcitonin (<0.5) ng/mL Urine Color Yellow Urine Appearance Clear Urine pH 5.5 (4.5-8.0) Ur Specific [place] 1.015 (1.000-1.035) Urine Protein Trace H (Negative) Urine Glucose (UA) Trace H (Negative) g/dL Urine Ketones Negative (NEGATIVE) Urine Occult Blood Negative (Negative) Urine Nitrate Negative (Negative) Urine Bilirubin Negative (NEGATIVE) Urine Urobilinogen 1.0 (0.2) E.U./dL Ur Leukocyte Esterase Negative (NEGATIVE) Urine RBC None seen (0-5/HPF) Urine WBC 1-5/hpf (0-5/HPF) Ur Squamous Epith Cells 1-5 /hpf (0-5/HPF) Urine Bacteria None seen (None) Ur Culture Indicated? Cult not indicated SARS-CoV-2 (PCR) (Negative) MDM Narrative Medical decision making narrative: 61-year-old gentleman in excellent health with no preceding diagnoses 3 weeks of dyspnea and a sense that he can not quite catch a full breath. No significant anemia, troponin is unremarkable chest x-ray looks like an enlarged heart and pleural effusion possible infiltrate mildly elevated white blood cell count. He is given Zosyn and additional studies ordered. D-dimer was dramatically elevated and a CT scan of the abdomen was done. With the incidentally noted large rather fixed lymph node in the right neck CT scan was extended through the abdomen and pelvis as well. He has pericardial effusion with thickened pericardium itself. Bilateral pleural effusions. There is the mention of an enlarged single mediastinal node. No obvious pneumonia and no pulmonary emboli. At this point he will need hospital admission to a facility that has pulmonary, Cardiology and likely cardiothoracic surgery available. Uncertain etiology for the pericardial effusion and thickened pericardium. Certainly concern for cancer etiology given the lymph nodes noted in the mediastinum and the neck. Due to critical bed shortages throughout [facility] finding appropriate placement for him is going to be challenging. There are no beds currently available in [facility]. Have left a message with the [facility] and will talk to Cardiology but they currently do not have available bed capacity. [facility], [facility] and [facility] are all completely full. Discussed findings and concerns with the patient. Will see if we can arrange for an echocardiogram to be done in the emergency department while we are waiting for additional bed placement. He is aware of diagnosis and search for bed availability. He is placed on 2 L of oxygen and is much more comfortable, less tachypnea oxygen saturations remained stable in the upper 90s. Complains of myalgias and ?hurting everywhere?. We use morphine for pain control and see if that also helps with the dyspnea. In discussion with Cardiology, we do want to keep him euvolemic to well hydrated. Diuresis would be inappropriate. If this is cancer related than steroids or nonsteroidals to help with pericardial inflammation may not be indicated. We need a more definitive diagnosis before proceeding with any additional treatment. 02/10 6am case is reviewed with Dr. Etienne, cardiology [facility]. Agrees to accept patient however there are no current beds available. He is placed on wait list at this time Care is transferred to Dr Dasilva at change of shift. Patient signed out to myself by Dr. Lance. Was seen independently evaluated by myself. Patient states he has occasional pain in his left shoulder and chest particularly when he coughs. He states that his breathing is doing okay right now. He defers anything for pain or cough. He is aware of the current plan, denies any other issues. Reviewed his past medical history family history is significant cardiac family history and parents and younger sibling. We are currently searching for beds there are no regional beds available patient is on the [facility] hotline and they asked us to re-contacted patient begins to deco mpensate. Recommendations from Dr. Etienne with Cardiology [facility] were reviewed. And are noted above as well. ECHO was obtained, it does show paradoxical septum due to right ventricular pressure overload. IVC dilated >2.1cm and collapses Less than 50% with sniff, suggesting high right atrial pressure. Small to moderate pericardial effusion without indications of cardiac tamponade, moderate left sided pleural effusion. Patient has been stable through the day. Signed out to Dr. Mendez while seeking transfer for further workup and treatment. 02/10/22 (marlene) no events over night, still on [facility] weight list. Dr murguia: Received turned over. Review patient's history and physical on labs and radiologic studies performed up to this point. Patient is stable. Repeat labs show improvement of leukocytosis. I did discuss the case with Dr. Gaffney with Cardiology at [facility] who states that patient should be admitted to medicine service and Cardiology will be available for consultation if needed. I then discussed the case with Dr. Hylton hospitalist at [facility] who accepts the patient in transfer. Patient is stable for transfer. <Margot Mendez, DO - Last Filed: 02/11/22 17:59> Lab Data Labs: Lab Results 02/10/22 02/10/22 02/10/22 Range/Units 02:55 02:55 02:55 WBC 13.8 H (4.5-11.0) X10^3/uL RBC 3.40 L (4.5-5.9) X10^6/uL Hgb 11.2 L (13.5-17.5) g/dL Hct 33.1 L (41-53) % MCV 97.4 (80-100) fL MCH 33.1 (26-34) PG MCHC 34.0 (30-36) % RDW 12.9 (11.6-14.8) % Plt Count 404 H (150-400) X10^3/uL Neut % (Auto) 84.6 H (50-75) % Lymph % (Auto) 5.7 L (25-40) % [place] % (Auto) 9.5 (3-14) % Eos % (Auto) 0.1 L (2-4) % Baso % (Auto) 0.1 (0-2) % Neut # (Auto) 61906 H (5035-9731) /uL Lymph # (Auto) 800 L (0890-1452) /uL [place] # (Auto) 1300 H (0-900) /uL Eos # (Auto) 0 (0-450) /uL Baso # (Auto) 0 (0-100) /uL D-Dimer 2425 H (<230) ng/mL Sodium 134 L (137-145) mmol/L Potassium 4.1 (3.4-5.1) mmol/L Chloride 103 (98-107) mmol/L Carbon Dioxide 23 (22-32) mmol/L BUN 14 (9-20) mg/dL Creatinine 0.68 (0.66-1.25) mg/dL Estimated GFR > 60 (>60) mL/min BUN/Creatinine Ratio 20.6 (6-22) Glucose 174 H (80-110) mg/dL Lactate (0.7-2.1) mmol/L Calcium 8.4 (8.4-10.2) mg/dL Magnesium 2.0 (1.6-2.3) mg/dL Total Bilirubin 1.4 H (0.2-1.3) mg/dL AST 79 H (17-59) IU/L ALT 135 H (<50) IU/L Alkaline Phosphatase 160 H (38-126) U/L Total Creatine Kinase (55-170) U/L CK-MB (CK-2) CK-MB (CK-2) Rel Index Troponin I (0.01-0.034) ng/mL NT-Pro-B Natriuret Pep 1370 H (<125) pg/mL Total Protein 7.0 (6.3-8.2) g/dL Albumin 3.6 (3.5-5.0) g/dL Globulin 3.4 (1.7-4.1) g/dL Albumin/Globulin Ratio 1.1 (1.0-2.8) Procalcitonin 0.26 (<0.5) ng/mL Urine Color Urine Appearance Urine pH (4.5-8.0) Ur Specific [place] (1.000-1.035) Urine Protein (Negative) Urine Glucose (UA) (Negative) g/dL Urine Ketones (NEGATIVE) Urine Occult Blood (Negative) Urine Nitrate (Negative) Urine Bilirubin (NEGATIVE) Urine Urobilinogen (0.2) E.U./dL Ur Leukocyte Esterase (NEGATIVE) Urine RBC (0-5/HPF) Urine WBC (0-5/HPF) Ur Squamous Epith Cells (0-5/HPF) Urine Bacteria (None) Ur Culture Indicated? SARS-CoV-2 (PCR) (Negative) 02/10/22 02/10/22 02/10/22 Range/Units 02:55 02:55 02:55 WBC (4.5-11.0) X10^3/uL RBC (4.5-5.9) X10^6/uL Hgb (13.5-17.5) g/dL Hct (41-53) % MCV (80-100) fL MCH (26-34) PG MCHC (30-36) % RDW (11.6-14.8) % Plt Count (150-400) X10^3/uL Neut % (Auto) (50-75) % Lymph % (Auto) (25-40) % [place] % (Auto) (3-14) % Eos % (Auto) (2-4) % Baso % (Auto) (0-2) % Neut # (Auto) (8180-5404) /uL Lymph # (Auto) (0861-7990) /uL [place] # (Auto) (0-900) /uL Eos # (Auto) (0-450) /uL Baso # (Auto) (0-100) /uL D-Dimer (<230) ng/mL Sodium (137-145) mmol/L Potassium (3.4-5.1) mmol/L Chloride (98-107) mmol/L Carbon Dioxide (22-32) mmol/L BUN (9-20) mg/dL Creatinine (0.66-1.25) mg/dL Estimated GFR (>60) mL/min BUN/Creatinine Ratio (6-22) Glucose (80-110) mg/dL Lactate 1.1 (0.7-2.1) mmol/L Calcium (8.4-10.2) mg/dL Magnesium (1.6-2.3) mg/dL Total Bilirubin (0.2-1.3) mg/dL AST (17-59) IU/L ALT (<50) IU/L Alkaline Phosphatase (38-126) U/L Total Creatine Kinase 50 L (55-170) U/L CK-MB (CK-2) TNP CK-MB (CK-2) Rel Index TNP Troponin I 0.013 (0.01-0.034) ng/mL NT-Pro-B Natriuret Pep (<125) pg/mL Total Protein (6.3-8.2) g/dL Albumin (3.5-5.0) g/dL Globulin (1.7-4.1) g/dL Albumin/Globulin Ratio (1.0-2.8) Procalcitonin (<0.5) ng/mL Urine Color Urine Appearance Urine pH (4.5-8.0) Ur Specific [place] (1.000-1.035) Urine Protein (Negative) Urine Glucose (UA) (Negative) g/dL Urine Ketones (NEGATIVE) Urine Occult Blood (Negative) Urine Nitrate (Negative) Urine Bilirubin (NEGATIVE) Urine Urobilinogen (0.2) E.U./dL Ur Leukocyte Esterase (NEGATIVE) Urine RBC (0-5/HPF) Urine WBC (0-5/HPF) Ur Squamous Epith Cells (0-5/HPF) Urine Bacteria (None) Ur Culture Indicated? SARS-CoV-2 (PCR) Negative (Negative) 02/10/22 02/11/22 02/11/22 Range/Units 17:18 05:55 05:55 WBC 11.5 H (4.5-11.0) X10^3/uL RBC 3.39 L (4.5-5.9) X10^6/uL Hgb 11.2 L (13.5-17.5) g/dL Hct 33.0 L (41-53) % MCV 97.5 (80-100) fL MCH 33.0 (26-34) PG MCHC 33.9 (30-36) % RDW 12.7 (11.6-14.8) % Plt Count 423 H (150-400) X10^3/uL Neut % (Auto) 83.0 H (50-75) % Lymph % (Auto) 6.5 L (25-40) % [place] % (Auto) 9.0 (3-14) % Eos % (Auto) 0.7 L (2-4) % Baso % (Auto) 0.8 (0-2) % Neut # (Auto) 9600 H (7329-3467) /uL Lymph # (Auto) 800 L (3841-1951) /uL [place] # (Auto) 1000 H (0-900) /uL Eos # (Auto) 100 (0-450) /uL Baso # (Auto) 100 (0-100) /uL D-Dimer (<230) ng/mL Sodium 137 (137-145) mmol/L Potassium 4.7 (3.4-5.1) mmol/L Chloride 102 (98-107) mmol/L Carbon Dioxide 32 (22-32) mmol/L BUN 15 (9-20) mg/dL Creatinine 0.73 (0.66-1.25) mg/dL Estimated GFR > 60 (>60) mL/min BUN/Creatinine Ratio 20.5 (6-22) Glucose 130 H (80-110) mg/dL Lactate (0.7-2.1) mmol/L Calcium 8.3 L (8.4-10.2) mg/dL Magnesium (1.6-2.3) mg/dL Total Bilirubin 0.9 (0.2-1.3) mg/dL AST 50 (17-59) IU/L ALT 98 H (<50) IU/L Alkaline Phosphatase 129 H (38-126) U/L Total Creatine Kinase 26 L (55-170) U/L CK-MB (CK-2) TNP CK-MB (CK-2) Rel Index TNP Troponin I < 0.012 (0.01-0.034) ng/mL NT-Pro-B Natriuret Pep (<125) pg/mL Total Protein 6.6 (6.3-8.2) g/dL Albumin 3.1 L (3.5-5.0) g/dL Globulin 3.5 (1.7-4.1) g/dL Albumin/Globulin Ratio 0.9 L (1.0-2.8) Procalcitonin (<0.5) ng/mL Urine Color Yellow Urine Appearance Clear Urine pH 5.5 (4.5-8.0) Ur Specific [place] 1.015 (1.000-1.035) Urine Protein Trace H (Negative) Urine Glucose (UA) Trace H (Negative) g/dL Urine Ketones Negative (NEGATIVE) Urine Occult Blood Negative (Negative) Urine Nitrate Negative (Negative) Urine Bilirubin Negative (NEGATIVE) Urine Urobilinogen 1.0 (0.2) E.U./dL Ur Leukocyte Esterase Negative (NEGATIVE) Urine RBC None seen (0-5/HPF) Urine WBC 1-5/hpf (0-5/HPF) Ur Squamous Epith Cells 1-5 /hpf (0-5/HPF) Urine Bacteria None seen (None) Ur Culture Indicated? Cult not indicated SARS-CoV-2 (PCR) (Negative) MDM Narrative Medical decision making narrative: 61-year-old gentleman in excellent health with no preceding diagnoses 3 weeks of dyspnea and a sense that he can not quite catch a full breath. No significant anemia, troponin is unremarkable chest x-ray looks like an enlarged heart and pleural effusion possible infiltrate mildly elevated white blood cell count. He is given Zosyn and additional studies ordered. D-dimer was dramatically elevated and a CT scan of the abdomen was done. With the incidentally noted large rather fixed lymph node in the right neck CT scan was extended through the abdomen and pelvis as well. He has pericardial effusion with thickened pericardium itself. Bilateral pleural effusions. There is the mention of an enlarged single mediastinal node. No obvious pneumonia and no pulmonary emboli. At this point he will need hospital admission to a facility that has pulmonary, Cardiology and likely cardiothoracic surgery available. Uncertain etiology for the pericardial effusion and thickened pericardium. Certainly concern for cancer etiology given the lymph nodes noted in the mediastinum and the neck. Due to critical bed shortages throughout [facility] finding appropriate placement for him is going to be challenging. There are no beds currently available in [facility]. Have left a message with the [facility] and will talk to Cardiology but they currently do not have available bed capacity. [facility], [facility] and [facility] are all completely full. Discussed findings and concerns with the patient. Will see if we can arrange for an echocardiogram to be done in the emergency department while we are waiting for additional bed placement. He is aware of diagnosis and search for bed availability. He is placed on 2 L of oxygen and is much more comfortable, less tachypnea oxygen saturations remained stable in the upper 90s. Complains of myalgias and ?hurting everywhere?. We use morphine for pain control and see if that also helps with the dyspnea. In discussion with Cardiology, we do want to keep him euvolemic to well hydrated. Diuresis would be inappropriate. If this is cancer related than steroids or nonsteroidals to help with pericardial inflammation may not be indicated. We need a more definitive diagnosis before proceeding with any additional treatment. 6/2 6am case is reviewed with Dr. Etienne, cardiology [facility]. Agrees to accept patient however there are no current beds available. He is placed on wait list at this time Care is transferred to Dr Dasilva at change of shift. Patient signed out to myself by Dr. Lance. Was seen independently evaluated by myself. Patient states he has occasional pain in his left shoulder and chest particularly when he coughs. He states that his breathing is doing okay right now. He defers anything for pain or cough. He is aware of the current plan, denies any other issues. Reviewed his past medical history family history is significant cardiac family history and parents and younger sibling. We are currently searching for beds there are no regional beds available patient is on the [facility] hotline and they asked us to re-contacted patient begins to decompensate. Recommendations from Dr. Etienne with Cardiology [facility] were reviewed. And are noted above as well. ECHO was obtained, it does show paradoxical septum due to right ventricular pressure overload. IVC dilated >2.1cm and collapses Less than 50% with sniff, suggesting high right atrial pressure. Small to moderate pericardial effusion without indications of cardiac tamponade, moderate left sided pleural effusion. Patient has been stable through the day. Signed out to Dr. Mendez while seeking transfer for further workup and treatment. 02/10/22 (marlene) no events over night, still on [facility] weight list. Critical Care Time <Rafaela Lance MD - Last Filed: 02/19/22 18:06> Critical Care Time Critical Care Time: Yes Total Critical Care Time: 56 Attestation: Critical care time is separate from other billable procedures. There is a high probability of a significant, sudden or life-threatening deterioration that requires my full and direct attention, intervention and personal management. This critical care time includes consultation with family and other consulting doctors, review of records, and interpretation of data from labs, EKGs and imaging as well as managements of acute pericardial effusion with progressive dyspnea and discussion with multiple consultants as well as updating patient and family members. Discharge Plan Departure Patient Disposition: [facility] Clinical Impression: Acute pericardial effusion, Pleural effusion, Acute dyspnea Prescriptions: No Action fluticasone propionate 50 mcg/actuation [place],Suspension 2 spray INTRANASAL DAILY loratadine [Claritin] 10 mg Tablet 10 mg PO DAILY PRN (Reason: Allergies) Referrals: Alex Schneider MD [Primary Care Provider] -
[2022-02-10 03:28] LABS: NT-proBNP (BNP-Adult 18+) 1370 pg/mL (<125)
[2022-02-10 03:30] LABS: COVID19 -Nasal RAPID Negative (Negative)
[2022-02-10 03:35] LABS: D Dimer 2425 ng/mL (<230); Procalcitonin 0.26 ng/mL (<0.5)
--- NOTE | 2022-02-10 03:38 | PC.NURSE ---
Pt has prominent heart murmer on auscultation, upper airway clear. Pt has hard, swollen lymph node in right neck that is visible.
[2022-02-10 03:40] LABS: Creatine Kinase 50 U/L (55-170)
--- NOTE | 2022-02-10 03:41 | DI.CT.S_ITS ---
PROCEDURE: CT ABDOMEN PELVIS W CON INDICATIONS: adenopathy, night sweats, TECHNIQUE: After the administration of IV contrast, axial sections were acquired from the lung bases to the pubic symphysis. Coronal and sagittal reformats were performed. For radiation dose reduction, the following was used: automated exposure control, adjustment of mA and/or kV according to patient size. COMPARISON: None. FINDINGS: Image quality: Excellent. Lung bases: Mild bilateral effusions, left greater than right with areas of superimposed consolidation. Heart: No significant findings. Heart is enlarged. Prominent pericardial effusion is present measuring 2 cm in AP dimension. ABDOMEN: Liver: Unremarkable. Gallbladder: Prominent gallstone is noted within the gallbladder without wall thickening. Biliary ducts: Unremarkable. Pancreas: Unremarkable. Spleen: Unremarkable. Adrenal Glands: Unremarkable. Kidneys and Ureters: There are 2 punctate inferior pole left renal calcifications. There is no obstruction. Stomach and Bowel: Stomach, small bowel loops, and colon are unremarkable. Colonic diverticular present without associated inflammatory change. Peritoneum: No abnormal intraperitoneal fluid. No free air. Ventral Wall: No hernia. Abdominal Nodes: No retroperitoneal or mesenteric adenopathy by size criteria. Vessels: Aorta and inferior vena cava are normal in size. PELVIS: Pelvic Organs: Unremarkable. Bladder: Bladder is distended with bilateral diverticula. Pelvic Nodes: No enlarged lymph nodes. Miscellaneous: Fat containing left inguinal hernia is present. Bones: Pars defect at L5 is present bilaterally. IMPRESSION: Cholelithiasis without imaging evidence of cholecystitis. Mild bilateral effusions with superimposed consolidations. The latter could be related to pneumonia and/or atelectasis. Please see CT chest report of 02/10/2022 for further details. Nonobstructing left renal calculi. Prominent pericardial effusion. The above findings are concordant with preliminary report. Dictated by: Yaa Suarez M.D. on 02/10/2022 at 9:14 Approved by: Yaa Suarez M.D. on 02/10/2022 at 9:17
--- NOTE | 2022-02-10 03:41 | DI.CT.S_ITS ---
PROCEDURE: CT ANGIO CHEST PE PROTOCOL INDICATIONS: dyspnea, elevated d dimer TECHNIQUE: After the administration of intravenous contrast, 2 mm thick sections acquired from the pulmonary apices to the posterior costophrenic angles. 3-dimensional maximum intensity projection (MIP) coronal and sagittal reformats were then acquired through the thorax. For radiation dose reduction, the following was used: automated exposure control, adjustment of mA and/or kV according to patient size. COMPARISON: None. FINDINGS: Image quality: Excellent. Pulmonary arteries: Pulmonary arteries are normal in size, and demonstrate no intraluminal filling defects to suggest central pulmonary embolism. Lungs and pleura: Atelectasis noted in the lung bases. Small bilateral pleural effusions. No pneumothorax. Central and peripheral airways are patent. Mediastinum: Heart size is normal with moderate to large pericardial effusion. No mediastinal or hilar adenopathy. Thoracic aorta is normal in caliber and enhancement. Esophagus is normal in caliber, without hiatal hernia. Bones and chest wall: No suspicious bony lesions. Ribs and thoracic spine appear intact throughout. Thyroid gland is within normal limits No axillary or supraclavicular adenopathy. Abdomen: Large calcified gallstone. Visualized upper abdominal solid organs appear normal in the early arterial phase of enhancement. IMPRESSION: 1. No pulmonary embolus. 2. Moderate to large sized pericardial effusion. 3. Small bilateral pleural effusions. 4. Cholelithiasis. Dictated by: Kirsten Michel MD, PhD on 02/10/2022 at 7:40 Approved by: Kirsten Michel MD, PhD on 02/10/2022 at 7:44
[2022-02-10 03:53] LABS: Troponin I 0.013 ng/mL (0.01-0.034)
[2022-02-10] MEDS: PIPERACILLIN/TAZO 4.5 GM in SODIUM CHLORIDE 0.9% 100 ML IV (03:53)
--- NOTE | 2022-02-10 06:19 | DI.ECHO.S_ITS ---
[place] +---------+ [facility] +---------+ : : [address] : : : : [id number] : : : : Phone: [phone] : : [phone] +---------+ Echocardiogram Report + + :Name: KAIA WRIGHT Study Date: 02/10/2022 Height: 67 in : :[facility] ReadingLocation: Weight: 170 lb : : Gender: Male BSA: 1.9 m2 : :: 1960 Age: 61 yrs BP: 115/68 mmHg: :Reason For Study: Pericardial Effusion : :Ordering Physician: TYLER, : :SEBASTIEN Joseph Performed By: Shlomo Briseno : :Referring: SEBASTIEN SCOTT : + + Interpretation Summary The left ventricle is normal in size. The ejection fraction is estimated to be 55-60%. The right ventricle is mildly dilated. Right ventricular systolic function is moderately reduced. There is mild tricuspid regurgitation. The right ventricular systolic pressure is estimated to be at least 48 mmHg based on an estimated right atrial pressure of 15 mm Hg. There is moderate pulmonary hypertension. There is a small to moderate pericardial effusion noted. There are no echocardiographic indications of cardiac tamponade. There is a moderate left-sided pleural effusion. Procedure: A two-dimensional transthoracic echocardiogram with color flow and Doppler was performed. The study quality was technically adequate. There is no prior echocardiogram noted for this patient. The patient was in normal sinus rhythm during the exam. The patient had a bundle branch block rhythm during the exam. Left Ventricle: The left ventricle is normal in size. Left ventricular wall thickness is borderline increased. There is no thrombus. The ejection fraction is estimated to be 55-60%. Paradoxical septum due to right ventricular pressure overload. Diastolic function could not be accurately assessed due to contradictory data. Right Ventricle: The right ventricle is mildly dilated. Right ventricular systolic function is moderately reduced. Atria: Both atria are moderately dilated. The interatrial septum grossly appears intact with no obvious evidence for an atrial septal defect. Mitral Valve: The mitral valve is normal in structure and function. There is trace mitral regurgitation. Aortic Valve: The aortic valve is normal in structure and function. The aortic valve is trileaflet. There is no aortic valve stenosis. No aortic regurgitation is present. Tricuspid Valve: The tricuspid valve is normal. There is mild tricuspid regurgitation. The right ventricular systolic pressure is estimated to be at least 48 mmHg based on an estimated right atrial pressure of 15 mm Hg. There is moderate pulmonary hypertension. Pulmonic Valve: The pulmonic valve leaflets are thin and pliable; valve motion is normal. There is mild pulmonic regurgitation. Great Vessels: The aortic root is normal size. The dimensions of the ascending aorta are normal. The IVC is dilated (diameter is greater than 2.1 cm) and it collapses less than 50% with a sniff. This suggests a high right atrial pressure of 15 mm Hg. Pericardium/ Pleura There is a small to moderate pericardial effusion noted. There are no echocardiographic indications of cardiac tamponade. There is a moderate left-sided pleural effusion. MMode/2D Measurements & Calculations LVIDd: 4.8 cm LVOT diam: 2.2 cm LVIDs: 3.3 cm Ao root diam: 3.6 cm FS: 31.3 % asc Aorta Diam: 3.7 cm IVSd: 1.1 cm LVPWd: 0.90 cm LV phipps. diameter/BSA (cm/m^2): 2.5 LV sys. diameter/BSA (cm/m^2): 1.7 LA dimension: 3.6 cm RA long axis: 6.2 cm LA A2 area: 22.8 cm2 LA A4 area: 26.1 cm2 LA length (vol): 5.9 cm LA vol: 86.2 ml LA vol index: 45.7 ml/m2 LVLs ap4: 7.0 cm LVLd ap2: 7.7 cm LVLs ap2: 6.4 cm TAPSE_phl: 1.4 cm Doppler Measurements & Calculations Ao V2 max: 118.0 cm/sec LVOT Max Ruben: 96.6 cm/sec Ao V2 mean: 87.3 cm/sec LV V1 max P.7 mmHg Ao max P.0 mmHg LV V1 VTI: 18.0 cm Ao mean P.0 mmHg BONG(I,D): 3.2 cm2 Ao V2 VTI: 21.7 cm BONG(V,D): 3.1 cm2 sev ratio: 0.83 BONG indexed to BSA (cm^2/m^2): 1.7 MV E max ruben: 78.0 cm/sec TR max ruben: 285.0 cm/sec MV A max ruben: 43.3 cm/sec TR max P.5 mmHg MV E/A: 1.8 Med Peak E' Ruben: 8.3 cm/sec E/E' med: 9.4 Lat Peak E' Ruben: 9.8 cm/sec E/E' lat: 8.0 E/e' average: 8.7 MV dec time: 0.19 sec SV(LVOT): 68.4 ml AV VR_phl: 0.82 BONG(VTI)/BSA_phl: 1.7 MV P1/2t-pr_phl: 55.0 msec Reading Physician:10:24 AM
[2022-02-10] MEDS: MORPHINE 2 MG/ML INJ IV (06:26)
--- NOTE | 2022-02-10 06:35 | PC.NURSE ---
2L O2 via NC applied to pt by Dr. Lance for pt tachypnea. Pt breathing rate slowed with oxygen application and ot appears to breath more easily.
[2022-02-10 17:33] LABS: Appearance Urine UA CLEAR; Bilirubin Urine UA NEGATIVE (NEGATIVE); Color Urine UA YELLOW; Glucose Urine UA TRACE g/dL (Negative); Ketones Urine UA NEGATIVE (NEGATIVE); Leukocyte Esterase Urine UA NEGATIVE (NEGATIVE); Nitrite Urine UA NEGATIVE (Negative); Occult Blood Urine UA NEGATIVE (Negative); Protein Urine UA TRACE (Negative); Specific Gravity Urine UA 1.015 (1.000-1.035); pH Urine UA 5.5 (4.5-8.0)
[2022-02-10 17:40] LABS: Bacteria Urine None Seen; Culture Indicated Urine Cult Not Indicated; RBC Urine None Seen (0-5/HPF); Squamous Epithelial Cell Urine 1-5 /HPF (0-5/HPF); WBC Urine 1-5/HPF (0-5/HPF)
[2022-02-11] VITALS (33 sets, daily range): BP systolic 96–125; BP diastolic 57–68; PULSE 77–91; RESP 18–30; TEMP 36.9; O2SAT 92–97
[2022-02-11 06:07] LABS: Add Manual Diff / Slide Review NO; Basophils Absolute Auto 100 /uL (0-100); Basophils Percent Auto 0.8 % (0-2); Eosinophils Absolute Auto 100 /uL (0-450); Eosinophils Percent Auto 0.7 % (2-4); Hemoglobin 11.2 g/dL (13.5-17.5); Lymphocytes Absolute Auto 800 /uL (1100-4500); Lymphocytes Percent Auto 6.5 % (25-40); Mean Corpuscular HGB Conc 33.9 % (30-36); Mean Corpuscular Volume 97.5 fL (80-100); Monocytes Absolute Auto 1000 /uL (0-900); Neutrophils Absolute Auto 9600 /uL (1500-7000); Platelet Count 423 X10^3/uL (150-400); Red Blood Cell Count 3.39 X10^6/uL (4.5-5.9); Red Cell Distribution Width 12.7 % (11.6-14.8); White Blood Cell Count 11.5 X10^3/uL (4.5-11.0)
[2022-02-11 06:19] LABS: Alanine Aminotransferase 98 IU/L (<50); Albumin 3.1 g/dL (3.5-5.0); Albumin Globulin Ratio 0.9 (1.0-2.8); Alkaline Phosphatase 129 U/L (38-126); Aspartate Aminotransferase 50 IU/L (17-59); BUN Creatinine Ratio 20.5 (6-22); Bilirubin Total 0.9 mg/dL (0.2-1.3); Blood Urea Nitrogen 15 mg/dL (9-20); Calcium 8.3 mg/dL (8.4-10.2); Carbon Dioxide 32 mmol/L (22-32); Chloride 102 mmol/L (98-107); Creatine Kinase 26 U/L (55-170); Estimated Glomerular Filt Rate > 60 mL/min (>60); Globulin 3.5 g/dL (1.7-4.1); Glucose 130 mg/dL (80-110); HEMOLYSIS < 15 (0-50); Potassium 4.7 mmol/L (3.4-5.1); Sodium 137 mmol/L (137-145); Total Protein 6.6 g/dL (6.3-8.2)
[2022-02-11 06:27] LABS: Troponin I < 0.012 ng/mL (0.01-0.034)
[2022-02-11] MEDS: PIPERACILLIN/TAZO 3.375 GM in SODIUM CHLORIDE 0.9% 100 ML IV (07:43)
--- NOTE | 2022-02-11 14:11 | PC.NURSE ---
KAE P/ U: 1430 Accepted: [facility] Dr. Hylton / Mary cancinosupervisor housecleaner Unit: [facility] Rm:[id number] Nurse report: Nancy [phone] nurse nancy to call back for report, attempted to call report at [phone]
== END 2022-02-11 14:42 | disposition short-term general hospital (02) ==
PROVIDERS: Emergency Medicine; Emergency Provider Emergency Medicine; PCP Internal Medicine
DX: I30.9 Acute pericarditis, unspecified (principal); J90 Pleural effusion, not elsewhere classified; Z20.822 Contact with and (suspected) exposure to COVID-19
CPT/HCPCS: 36415; 71045; 71275; 74177; 80053; 81001; 82550; 83605; 83735; 83880; 84145; 84484; 85025; 85379; 87040; 87635; 93005; 93306; 96365; 96366; 96375; 99285; 99291; 99292; C9803; J2270; J2543; Q9967

== ENCOUNTER → 2022-06-02 08:59 | Outpatient (CLI) | payer BC, SELFPAY ==
--- NOTE | 2022-06-02 | DI.ECHO.S_ITS ---
[place] +---------+ Hospital +---------+ : : [address] : : : : [id number] : : : : Phone: [phone] : : [phone] +---------+ Echocardiogram Report + + :Name: KAIA WRIGHT Study Date: 06/02/2022 Height: 67 in : :[facility] ReadingLocation: Weight: 170 lb : : Gender: Male BSA: 1.9 m2 : :: 1960 Age: 61 yrs BP: 122/72 mmHg: :Reason For Study: PULMONARY HYPERTENSION : :Ordering Physician: JIL, : :MADAN Szymanski Performed By: Caitlin Siegel : :Referring: MADAN LEY : + + Interpretation Summary The ejection fraction is estimated to be 55-60%. Diastolic parameters suggest probable normal left ventricular diastolic function and normal filling pressures. The right ventricular systolic function is normal. The right ventricular systolic pressure is estimated to be at least 23 mmHg based on an estimated right atrial pressure of 8 mm Hg. The left atrium is moderately dilated. The right atrium is mild to moderately dilated. No significant valvular disease. Procedure: A two-dimensional transthoracic echocardiogram with color flow and Doppler was performed. The study quality was technically adequate. Comparison is made with the echocardiogram of 02/10/2022. The patient was in sinus rhythm with heart rates between 67-74 bpm during the exam. Left Ventricle: The left ventricle is normal in size and wall thickness. The ejection fraction is estimated to be 55-60%. Regional wall motion abnormalities cannot be excluded due to limited visualization. Diastolic parameters suggest probable normal left ventricular diastolic function and normal filling pressures. Right Ventricle: The right ventricle is normal in size and function. The right ventricular systolic function is normal. Atria: The left atrium is moderately dilated. The right atrium is mild to moderately dilated. There is no Doppler evidence for an interatrial shunt. The atrial septum is aneurysmal. Mitral Valve: The mitral valve is normal in structure and function. There is trace mitral regurgitation. Aortic Valve: The aortic valve is trileaflet. The aortic valve opens well. There is no aortic valve stenosis. No aortic regurgitation is present. Tricuspid Valve: The tricuspid valve is normal in structure and function. There is trace tricuspid regurgitation. The right ventricular systolic pressure is estimated to be at least 23 mmHg based on an estimated right atrial pressure of 8 mm Hg. Pulmonic Valve: The pulmonic valve leaflets are thin and pliable; valve motion is normal. There is mild pulmonic regurgitation. Great Vessels: The aortic root is normal size. The dimensions of the ascending aorta are normal. The IVC is dilated (diameter is greater than 2.1 cm) yet it collapses greater than 50% with a sniff. This suggests a right atrial pressure of 8 mm Hg. Pericardium/ Pleura There is no pericardial effusion. There is no pleural effusion. MMode/2D Measurements & Calculations LVIDd: 5.1 cm LVOT diam: 2.3 cm LVIDs: 3.3 cm Ao root diam: 3.7 cm FS: 34.7 % asc Aorta Diam: 3.8 cm IVSd: 0.82 cm Ao Arch Diam (Prox Trans): 3.3 cm LVPWd: 0.77 cm LV phipps. diameter/BSA (cm/m^2): 2.7 LV sys. diameter/BSA (cm/m^2): 1.8 LA A2 area: 28.5 cm2 RA long axis: 6.1 cm LA A4 area: 21.4 cm2 RA area: 23.5 cm2 LA length (vol): 6.1 cm RA vol: 77.1 ml LA vol: 85.4 ml RA : 40.9 ml/m2 LA vol index: 45.2 ml/m2 IVC diam: 2.2 cm RVD1 (basal): 3.8 cm RVD2 (mid): 3.3 cm TAPSE: 1.6 cm Doppler Measurements & Calculations Ao V2 max: 114.4 cm/sec LVOT Max Ruben: 83.6 cm/sec Ao V2 mean: 78.9 cm/sec LV V1 max P.8 mmHg Ao max P.2 mmHg LV V1 VTI: 20.6 cm Ao mean P.8 mmHg BONG(I,D): 3.7 cm2 Ao V2 VTI: 24.0 cm BONG(V,D): 3.1 cm2 sev ratio: 0.86 BONG indexed to BSA (cm^2/m^2): 1.9 MV E max ruben: 70.2 cm/sec TR max ruben: 194.4 cm/sec MV A max ruben: 35.7 cm/sec TR max P.1 mmHg MV E/A: 2.0 PA V2 max: 85.2 cm/sec Med Peak E' Ruben: 8.0 cm/sec PA V2 mean: 61.2 cm/sec E/E' med: 8.7 PA mean P.7 mmHg Lat Peak E' Ruben: 14.6 cm/sec FAINA pr(Accel): 24.2 mmHg E/E' lat: 4.8 E/e' average: 6.8 MV dec time: 0.23 sec SV(LVOT): 87.9 ml Reading Physician:TRUDY
== END ==
PROVIDERS: PCP Internal Medicine; Referring Provider Internal Medicine; Visit Provider Internal Medicine
DX: I27.20 Pulmonary hypertension, unspecified (principal); I51.7 Cardiomegaly
CPT/HCPCS: 93306